=== PATIENT | male | born 1980 | race Caucasian/White ===

== ENCOUNTER 2016-09-26 14:10 | Emergency (ER) | payer OTHER, MEDICAID ==
[2016-09-26 14:22] VITALS: BP 160/100
== END 2016-09-26 17:29 | disposition home or self-care (01) ==
LOC: ED 14:10
DX: S82.55XA Nondisplaced fracture of medial malleolus of left tibia, initial encounter for closed fracture (principal); I10 Essential (primary) hypertension; E11.9 Type 2 diabetes mellitus without complications; X58.XXXA Exposure to other specified factors, initial encounter; Y93.89 Activity, other specified; Y99.8 Other external cause status; Y92.89 Other specified places as the place of occurrence of the external cause

== ENCOUNTER 2017-05-05 21:53 | Emergency (ER) | payer OTHER, MEDICAID ==
[2017-05-05 23:22] LABS: BASOPHIL % 0.3 % (0-2); PLATELET COUNT 234 x10^3mcL (130-400); RED CELL DISTRIBUTION WIDTH 12.8 % (11.5-14.5)
[2017-05-05 23:36] LABS: CALCIUM 8.4 mg/dL (8.5-10.1); CARBON DIOXIDE 28.3 mmol/L (21-32); CHLORIDE SERUM 99 mmol/L (98-107); CREATININE SERUM 0.8 mg/dL (0.7-1.3); GFR1 > 60 mL/min; GLUCOSE SERUM 295 mg/dL (74-106); POTASSIUM SERUM 3.5 mmol/L (3.5-5.1); SODIUM SERUM 137 mmol/L (136-145)
[2017-05-05 23:46] LABS: ALKALINE PHOSPHATASE 80 U/L (46-116); ALT/SGPT 55 U/L (16-63); AST/SGOT 22 U/L (15-37); BILIRUBIN TOTAL 0.36 mg/dL (0.20-1.00); C REACTIVE PROTEIN 3.4 mg/dL (<=0.9); TOTAL PROTEIN, SERUM 7.4 g/dL (6.4-8.2)
[2017-05-05 23:47] LABS: ALBUMIN 3.3 g/dL (3.4-5.0)
[2017-05-05 23:56] LABS: CK-MB 2.3 ng/mL (0-3.6)
[2017-05-06 00:09] LABS: ERYTHROCYTE SED RATE 22 mm/hr (0-15)
[2017-05-06 00:12] LABS: FREE T4 1.08 ng/dL (0.76-1.46); T4(THYROXINE) 8.3 ug/dL (4.7-13.3)
[2017-05-06 00:19] LABS: T3 TOTAL 1.01 ng/mL
[2017-05-06 01:38] LABS: microscopic required? NO
[2017-05-06 01:52] VITALS: BP 166/103
[2017-05-06 01:53] LABS: urine erythrocyte NEGATIVE (NEGATIVE)
== END 2017-05-06 01:52 | disposition home or self-care (01) ==
LOC: ED 21:53
PROVIDERS: Specialist
DX: J11.1 Influenza due to unidentified influenza virus with other respiratory manifestations (principal); I10 Essential (primary) hypertension; E11.9 Type 2 diabetes mellitus without complications; M62.830 Muscle spasm of back
CPT/HCPCS: 36600; 83880; 84439; 87804; J1885; J2800; J7030; J7050

== ENCOUNTER 2017-05-20 04:01 | Emergency (ER) | payer OTHER, MEDICAID ==
[~2017-05-20] VITALS: Ht 182.9 cm; Wt 128.8 kg
[2017-05-20 04:15] VITALS: BP 150/103; Ht 182.9 cm; Wt 128.8 kg
== END 2017-05-20 05:58 | disposition left against medical advice (07) ==
LOC: ED 04:01
DX: Z53.21 Procedure and treatment not carried out due to patient leaving prior to being seen by health care provider (principal)